=== PATIENT | female | born 1965 | race Caucasian/White ===

== ENCOUNTER 2022-04-07 11:08 | Emergency (ER) | payer OTHER ==
[~2022-04-07] VITALS: Ht 165.1 cm; Wt 72.6 kg
[2022-04-07] MEDS ORDERED: METFORMIN HCL500 M3 PO (11:44)
[2022-04-07] MEDS ORDERED: ZESTRIL2.5 MG PO (11:44)
== END 2022-04-07 15:54 | disposition home or self-care (01) ==
LOC: ER 11:08
DX: M62.830 Muscle spasm of back (principal); S09.93XA Unspecified injury of face, initial encounter; W18.30XA Fall on same level, unspecified, initial encounter; Y93.89 Activity, other specified; Y92.59 Other trade areas as the place of occurrence of the external cause